=== PATIENT | female | born 1970 ===

== ENCOUNTER → 2017-02-19 | Outpatient (CLI) | payer OTHER ==
--- NOTE | 2017-02-20 06:08 | PAP/PSG TECHNICIAN REPORT ---
[facility] Treatment Supervisor Polysomnogram Report Study name: None Report date: 02/20/2017 Study date: 02/19/2017 Referring Physician: Ada HARRIS M.D. Name: WESLEYROBBIE LEELA Interpreting Physician: Gay Harris M.D. Date of : 1970 Treatment Supervisor: Monica Alex RPSGT. Sex: Female Age: 46 Study Type: PSG Weight: 166 lbs 14.5 in Height: 46 years, Height 5' 5" Neck Circum: BMI: 27.62 Medications: NONE REPORTED Patient History 46 yr-old female here for a baseline study. She has a history of loud snoring, napping, and bruxism. She is wearing a mouth guard for the test. Her [place] scale is 11. The test was started on room air. ETCO2 testing was not utilized during this study. Room 1 Parameters Monitored NPSG: E1-M2, E2-M1, Fp1-M2, Fp2-M1, F3-M2, F4-M2, F4-M1, C3-M2, C4-M2, C4-M1, O1-M2, O2-M2, O2-M1, T3-M2, T4-M1, P3-M2, P4-M1, CHIN1, CHIN2, HR, EKG, Legs, PFLOW, SNOR, FLOW, CFLOW, Tidal Volume, THOR, ABDO, SpO2, PLTH, CPRESS, ETCO2 Wave, ETCO2, pH Sleep Architecture Sleep Stages Time at Lights Off 9:52:49 PM STAGES Time (min.) TST (%) Time at Lights On 5:39:19 AM Wake 139.0 -- Total Recording Time (TRT) 466.50 min. N1 68.5 21 Total Sleep Period (TSP) 456.0 min. N2 171.0 52 Total Sleep Time (TST) 327.5min. N3 8.0 2 Awake Time 139.0 min. REM 80.0 24 Wake after Sleep Onset 128.5 min. Sleep Efficiency (SE) 70 % Sleep Onset Latency (NICOLA) 10.5 min. Number of Stage 1 Shifts None Awakenings 25 Stage Changes 112 Number of REM periods 5 REM 80.0 24 REM Latency 78.0 min. NREM 247.5 76 Body Position Analysis Supine Right Left Side Prone Vertical Total Sleep Time (min.) 123.8 157.1 128.0 285.13 0.0 0.0 Total Sleep Time (%) 13% 48% 39% 87 0% N/A% Total Sleep Time REM (min.) 0.0 33.5 46.5 None 0.0 0.0 Total Sleep Time NREM (min.) 42.4 123.6 81.5 None 0.0 0.0 Intermittent Wake (min.) 81.4 32.6 25.0 None 0.0 0.0 Total Sleep Period (%) 25% None None None None None Arousals Myoclonus (PLM) * Events Count Index Events Count Index Spontaneous 17 3 Events Awake (PLMW) 229 98.8 Respiratory 26 4.8 Events Asleep w/ Arousal (PLMA) 68 12.5 PLM 66 12 Events Asleep w/o Arousal (PLMS) 355 65.0 Snoring 5 1 Total Asleep 423 77.5 Total 114 21 Total 652 84 Respiratory Analysis * CA OA MA CH H RERA Total Count 0 2 0 0 51 4 53 Index 0.0 0.4 0.0 0 9.3 1 10.4 Mean Duration 0.0 15.6 0.0 0.00 26.4 17.8 25.4 Longest Duration 0.0 21.2 0.0 0.00 0.0 19.7 43.4 Respiratory Event Summary Total Supine ~Supine Right Left Prone REM NREM Apneas Count 2 0 2 2 0 N/A 1 1 Index 0.4 0 0 0.8 0.0 N/A 1 0 Hypopneas (4% Desat) Count 51 28 23 7 16 N/A 13 38 Index 9.3 39.7 5 2.7 7.5 N/A 9.8 9.2 Apneas & All Hypopneas Count 53 28 25 9 16 N/A 14 39 Index 9.7 40 5 3 7 N/A 10.5 9.5 Respiratory Events (Crusher [employer]sembler+All Hyp+RERA) Count 53 28 29 13 16 N/A 14 39 Index 10.4 40 6 5.0 7.5 N/A 10.5 10.4 Respiratory Related Arousal Count 26 28 12 7 5 N/A 2 24 Index 4.8 20 3 3 2 N/A 2 6 Snoring Analysis Supine Right Left Prone REM NREM Total Snore duration 11.2 min Snores count 30 413 193 N/A 52 584 636 Snore mean duration 1.1 Sec Snores index 42 158 90 N/A 39.0 141.6 116.5 TST with snoring (%) 3.4% Desaturation Event Summary: Minimum %SpO2 Event Count Mean/Min/Max Duration(sec.) Desaturation Index % Time In Bed > 90 64 28.8 / 14.0 / 58.3 8.8 96.3 86 - 90 1 12.0 / 12.0 / 12.0 3.8 3.5 81 - 85 0 N/A 0.0 0.1 76 - 80 0 N/A 0.0 0.0 71 - 75 0 N/A 0.0 0.0 66 - 70 0 N/A 0.0 0.0 61 - 65 0 N/A 0.0 0.0 56 - 60 0 N/A 0.0 0.0 51 - 55 0 N/A 0.0 0.0 < 50 0 N/A 0.0 0.0 Total REM NREM Awake <50% 0.0 min. 0.0 min. 0.0 min. 0.0 min. 51 - 60% 0.0 min. 0.0 min. 0.0 min. 0.0 min. 61 - 70% 0.0 min. 0.0 min. 0.0 min. 0.0 min. 71 - 80% 0.0 min. 0.0 min. 0.0 min. 0.0 min. 81 - 90% 16.5 min. 7.7 min. 7.4 min. 1.4 min. 91 - 100% 435.8 min. 72.3 min. 239.6 min. 123.9 min. Average 94 93 93 95 Minimum SpO2 80 82 85 80 Desaturation Event Index 8.4 10.5 10.4 4.3 # Desat. Events below 89% 19 10 8 1 Time(%) with Saturation below 89% 0.9 0.5 0.3 0.1 Time(min.) with Saturation below 89% 4.0 2.4 1.3 0.3 Time (mins) REM (mins) NREM (mins) % of TST SpO2 Below 90% 46 14 N32 2.5 SpO2 Below 88% 8 0 0 1 Heart Rate Analysis Min (bpm) Max (bpm) Average (bpm) Awake 52 105 73 NREM 51 97 66 REM 51 105 71 Overall 51 105 68 Supplemental O2 Values Minimum O2 level: None Value Start Time End Time Treatment Supervisor Comments Ms. Robb slept in the right, left, and supine positions. No cardiac arrhythmias were noted. PLMs were noted. She wore a mouth guard but no bruxism was noted. Snoring was noted and scored as a 2 on a scale of 1 through 5. (0=no snoring, 5=snoring loud enough to be heard through a closed door or down the [address]) She awoke to use the restroom two times during the night. Ms. Robb stated that she slept about the same as usual. The final report will be interpreted and signed by a sleep physician. The completed physician report will then be placed in the patient medical record. Therapy (cm H2O) 0 TIB (min.) 466.5 TST (min.) 327.5 Sleep Onset (min.) 10.5 REM Onset From Sleep (min.) 78.0 Sleep Efficiency % 70 Wakefulness (%) 30 Wakefulness (min.) 139.0 NREM 1 (%) 21 NREM 1 (min.) 68.5 NREM 2 (%) 52 NREM 2 (min.) 171.0 NREM 3 (%) 2 NREM 3 (min.) 8.0 REM (%) 24 REM (min.) 80.0 # Arousals 114 Arousal Index 21 # Snore 636 Snore Index 116.5 AHI 9.7 AHI Supine 40 AHI Non-Supine 5 NREM AHI 9.5 REM AHI 10.5 RDI 10.4 # Obstructive Apnea 2 # Central Apnea 0 # Mixed Apnea 0 # Hypopneas 51 RERAs 4 Total Respiratory Events 58 Time Below SpO2 89% (min.) 3.7 Mean NREM SpO2 (%) 93 Mean REM SpO2 (%) 93 Mean Sleep SpO2 (%) 93 Min NREM SpO2 (%) 85 Min REM SpO2 (%) 82 Position Supine (min.) 123.8 Position Non-supine (min.) 285.1 LM Index Sleep 77.5 LM Index NREM 88.7 LM Index REM 42.8 Mean Heart Rate (bpm) 68 Min Heart Rate (bpm) 51
--- NOTE | 2017-03-01 08:45 | POLYSOMNOGRAPH REPORT ---
REFERRING PERSON: Dr. Saima Harris. OPERATIONS TECHNICIAN: Monica Alex. Ms. Robb is a 46-year-old female sent for baseline sleep study. She has a history of bruxism, daytime sleepiness and loud snoring. She is wearing a mouthguard for this test because of her history of bruxism. Her [place] sleepiness scale score on the evening of this study is 11. BMI is 27.62. Following the technical and digital specifications of the [place] [employer] (AASM) a standard diagnostic polysomnogram was performed monitoring EEG, EOG, EMG (chin and leg deviations), oxygen saturation, body position, digital video, respiratory effort and airflow. The sleep Stage and event scoring was based on the AASM Manual for the Scoring of Sleep and Associated Events 2007 edition. Apneas are defined as a drop in the peak thermal sensor excursion by >90% of baseline for at least 10 seconds. Hypopneas were scored using the 4% oxygen desaturation rule (4A-[employer]) and a decrease in the nasal pressure excursions by >30% of baseline for at least 10 seconds. Respiratory effort-related arousal (RERA's) is defined as a sequence of breaths lasting at least 10 seconds characterized by increasing respiratory effort or flattening of the nasal pressure waveform leading to an arousal from sleep when the sequence of breaths does not meet criteria for an apnea or hypopnea. Apnea Hypopnea index (AHI) is defined as the number of apneas and hypopneas occurring in an hour of sleep. Respiratory disturbance index (RDI) is defined as the number of apneas, hypopneas, and RERA's occurring in an hour of sleep. Ms. Robb's total sleep period time was 456 minutes. Total sleep time was 327.5 minutes. Sleep efficiency was 70%. Latency to sleep onset was 10.5 minutes with wake after sleep onset of 128.5 minutes. Total non-REM sleep time was 247.5 minutes. She spent 21% of that time in N1 sleep, 52% in N2 sleep and 2% in N3 sleep. REM latency was 78 minutes. Total REM sleep time was 80 minutes or 24% of total sleep time. There were 114 cortical arousals from sleep. 17 of these arousals were spontaneous, 26 were due to respiratory events, 66 were due to periodic limb movements of sleep and 5 were due to snoring. There were 423 periodic limb movements of sleep noted on this test. Limb movement index was 77.5. Limb movement with arousal index was 12.5. There were no central, 2 obstructive and no mixed apnea on this test. There were 51 hypopnea and 4 RERA. Apnea-hypopnea index was 9.7 consistent with mild sleep apnea. Supine AHI was 40, REM AHI was 10.5. There were 636 snoring events recorded. Total sleep time with snoring was 3.4%. With the mouth guard in place, this patient did not brux. Mean saturation during sleep was 94% with desaturations to 80%. Saturations were less than 89 however for only 4 minutes of total recording time. There was no cardiac ectopy noted on this study. Heart rates during sleep ranged from a low of 51 beats per minute to a high of 105 beats per minute. IMPRESSION AND PLAN: 46-year-old female with evidence of mild sleep apnea severe in supine sleep without nocturnal hypoxemia. 1. This patient would likely benefit from positive airway pressure therapy. She should return to the sleep lab for a full night titration and then based on those results be started on equipment at home. A download from her machine can be reviewed in 1 month both to check compliance as well as AHI and further pressure adjustments can occur at that time. 2. Should this patient be unwilling or unable to tolerate CPAP therapy, she could be started on auto titrating CPAP with pressures of 5-15 cm. In 1 month, review of her download can determine optimal pressure and her device can be reset to that pressure. 3. Should this patient be unwilling or unable to tolerate CPAP therapy, she should be referred to ear, nose and throat or oral surgery/dental medicine (if appropriate) to discuss alternative treatments for sleep disorder breathing. YOEL
== END | disposition home or self-care (01) ==
LOC: C.NEUR 21:00
PROVIDERS: ATTEND Family Medicine
DX: F45.8 Other somatoform disorders (principal); G47.10 Hypersomnia, unspecified; R06.83 Snoring